=== PATIENT | female | born 1990 | race Caucasian/White ===

== ENCOUNTER 2019-05-04 15:21 | Emergency (ER) | payer MEDICAID ==
[~2019-05-04] VITALS: Ht 160 cm; Wt 63.0 kg
[~2019-05-04 15:21] MED LIST: LORA-441 PO; PRED20TA PO; RANI150T35 PO
[2019-05-04 15:26] VITALS: BP 127/58; PULSE 64; RESP 20; Ht 160 cm; Wt 63.0 kg
== END 2019-05-04 16:15 | disposition home or self-care (01) ==
LOC: E/R 15:21
DX: J02.9 Acute pharyngitis, unspecified (principal); K21.9 Gastro-esophageal reflux disease without esophagitis
CPT/HCPCS: 99282